=== PATIENT | female | born 1995 | race Caucasian/White ===

== ENCOUNTER 2017-06-21 14:42 | Emergency (ER) | payer OTHER ==
[~2017-06-21] VITALS: Ht 167.6 cm; Wt 99.8 kg
[2017-06-21 14:54] VITALS: BP 127/89
== END 2017-06-21 15:02 | disposition admitted as inpatient to this hospital (09) ==
LOC: ERH 14:42
DX: S09.90XA Unspecified injury of head, initial encounter (principal); W20.8XXA Other cause of strike by thrown, projected or falling object, initial encounter
CPT/HCPCS: 81025